=== PATIENT | male | born 1995 | race Caucasian/White ===

== ENCOUNTER → 2021-02-16 11:36 | Outpatient (CLI) | payer OTHER, SELFPAY ==
[2021-02-16 16:21] LABS: Anion Gap 9 (5-15); BUN 12 mg/dL (7-18); BUN/Creat Ratio 14.9 RATIO (10-20); Calcium,Total 9.1 mg/dL (8.5-10.1); Chloride 102 mmol/L (98-107); Cholesterol 173 mg/dL (200); EST Glomerular Filtration Rate 122 mL/min (>60); Est Glom Filt Rate - Afr Amer 148 mL/min (>60); Glucose 76 mg/dL (74-106); High Density Lipoprotein 33 mg/dL; Potassium 3.7 mmol/L (3.5-5.1); Sodium Level 137 mmol/L (136-145); Triglycerides 202 mg/dL; Very Low Density Lipoprotein 40 mg/dL (5-40)
== END ==
PROVIDERS: Visit Provider Family Medicine
DX: Z00.00 Encounter for general adult medical examination without abnormal findings (principal)
CPT/HCPCS: 36415; 80048; 80061

== ENCOUNTER 2021-11-22 08:23 | Day surgery (SDC) | payer OTHER, SELFPAY ==
[2021-11-22] VITALS (11 sets, daily range): BP systolic 107–143; BP diastolic 57–90; PULSE 60–93; RESP 14–18; TEMP 36.1–36.6; O2SAT 92–100; BMI 41.8
[2021-11-22] MEDS: Lactated Ringers 1,000 ML 15 ML IV ×2 (08:55→11:30)
--- NOTE | 2021-11-22 09:39 | HP.PCM_ITS ---
History and Physical Date of Admission: 11/22/21 Intake Vital Signs 10/22/21 08:00 Height 5 ft 8 in Weight: 219 lb 6 oz BMI 33.3 BP 125/85 H Blood Pressure Location Rt brachial Position Sitting Respiration 18 Pulse 70 Pulse Source NIBP Temp 97.8 F Temp Source Temporal Pulse Oximetry (%) 99 Oxygen Delivery Method room air Intake Visit Reasons: Hernia Chief Complaint: umbilical hernia [employer] Att[employer] Required: No Is patient in pain?: No Allergies No Known Allergies Allergy (Verified 10/22/21 08:01) Medications NK 10/22/21 [History Confirmed 10/22/21] [facility] Medical History (Updated 10/22/21 @ 08:00 by Gloria Real) Umbilical hernia Surgical History (Updated 10/22/21 @ 08:00 by Gloria Real) History of right shoulder replacement History of tonsillectomy and adenoidectomy Family History (Updated 10/22/21 @ 08:00 by Gloria Real) Father Cancer retinal Mother No problems noted. Social History Smoking Status: Never smoker HPI HPI HPI: IDAZ ANDREWS, is a 26 M who presents to the office today for ROS General General: Yes weight change; No fatigue HEENT HEENT: No difficulty swallowing Endo Endocrine: No thyroid disease Musc Musculoskeletal: No back problems or arthritis Cardio Cardiovascular: No pacemaker, heart disease, atrial fibrillation, high blood pressure, heart attack, heart stent, palpitations or chest pain Psych Psychiatric: No depression or anxiety Resp Respiratory: No shortness of breath, Yes cough, No COPD, No asthma and No emphysema Gastro Gastrointestinal: No abdominal pain, No nausea or vomiting, No diarrhea, No constipation, No blood in stool, No acid reflux, No hemorrhoids, No ulcers, No gallbladder problem and No black,tarry stools Jarek Hematologic: No blood thinners Exam Const General: cooperative Orientation: alert and oriented x3 HENMT Head: normal to inspection Neck Neck: normal visual inspection and full ROM Chest Chest palpation & inspection: normal inspection of the chest Resp Effort & Inspection: normal respiratory effort Auscultation: clear to auscultation bilaterally Cardio Rate: regular rate Rhythm: regular rhythm GI Inspection: non-distended Palpation: soft, hernia umbilical and nontender Skin General: no rashes or lesions noted Neuro General: patient alert and patient oriented x3 Extrem General: full ROM Psych Appearance: grossly normal Mental Status: mental status grossly normal Assessment and Plan Assessment and Plan (1) Hernia: Plan - Dr. Markus Nam MD: Patient has a moderate sized umbilical hernia. I discussed repair with him both open and laparoscopic approach. Due to his body habitus I would recommend robotic assisted laparoscopic approach so a larger mesh may be placed and reduce the risk of recurrence. I discussed robotic assisted laparoscopic umbilical hernia repair with mesh. I discussed mesh placement I discussed the risks of the procedure including not limited to bleeding, infection, injury to underlying organs and bowel. Patient understands the risks and is when to proceed. Markus Nam MD Pager: [facility] [address] [place] [address], [address] [place] [address] Office: I have re-examined the patient. There are no clinical changes since date of ex am.
[2021-11-22] MEDS: Cefazolin 2 GM in 0.9% Normal Saline 100 ML IV (10:30)
[2021-11-22] MEDS: Bupivacaine 0.5% PF 10 ML VIAL (10:50)
--- NOTE | 2021-11-22 12:19 | OP.PCM_ITS ---
Problems Associated Problem List Diagnoses (1) Umbilical hernia: Report of Operation Date of Procedure: 11/22/21 Pre-Operative Diagnosis: Umbilical hernia Post-Operative Diagnosis: Umbilical hernia Surgery/Procedure Performed:: Robotic assisted laparoscopic umbilical hernia repair with mesh Description of Procedure: Patient was brought back to the operating room and general anesthesia was induced. The abdomen was prepped and draped in usual sterile fashion. An incision was made in the left upper quadrant Veress needle was placed into the abdomen and a drop test was performed. The abdomen was then insufflated 15 mmHg. Veress needle was removed and a camera port was placed into the abdomen the camera was placed into the abdomen. There appeared to be no injuries from entry. Under direct visualization a left lateral 8 mm port was placed as well as a left upper quadrant 8 mm port. The robot was then docked. The hernia contents were reduced. Next an incision was made in the peritoneum of the falciform which was then extended inferiorly to allow a peritoneal flap. The peritoneal flap was then dissected medially until the hernia sac was encountered. The hernia sac was reduced and the preperitoneal plane was continued to dissect laterally until there was a good flap of peritoneum. Next the hernia was closed with running #1 strata fix suture. A 10 x 15 cm progrip mesh was then unfolded over the defect and placed over the defect. Next the peritoneum was reapproximated using running 3 OV lock suture completely covering the mesh with peritoneum. Next the robot was undocked and air was allowed to desufflate from the abdomen and the ports were removed. The incisions were injected with local anesthetic and closed with 4-0 Monocryl suture. Steri- Strips and bandages were applied. Patient was woken and taken to PACU stable condition. Grafts/Implants Used: 10 x 15 cm progrip mesh Admit VTE Documentation VTE Mechan Device Prophylaxis: SCD's
--- NOTE | 2021-11-22 12:22 | EX.PCM.DISCH ---
Discharge Instructions Procedure Hernia Diet Discharge Diet: Light diet - advance as tolerated Activity Discharge Activity: May Not Drive (for 2-3 days or while taking narcotic pain meds.) and May Shower (with the bandage in place 1-2 days after surgery.) Lifting Restrictions: 20 pounds for 4 weeks. Additional Activity Instructions:: Climbing stairs is fine, walking is encouraged. Sitting in bed may be uncomfortable. Sitting up using your lateral muscles (sitting up sideways) is usually more comfortable. Do not drive, work heavy equipment of sign legal documents for 24 hours. Pain medications may cause nausea, you should typically eat light foods as you take your pain medications. Pain medications may also cause constipation. If you have difficulty with this, discuss with your doctor. Tylenol and Ibuprofen for pain, Oxycodone only if this is not working. Dressing / Incision Call your doctor if your incision/area has: Continuous Slow Oozing, Sudden Increased Bleeding, Increased Pain/ Swelling, Increased Redness and Foul Smelling Discharge Call your doctor if you observe: Fever of 101 or Higher Suture Line Care: Avoid Pulling/Pushing and Avoid Pinching/Bending Remove Dressing in: 2 days (Remove clear bandages in 2 days, remove Steri-Strips in 7 to 10 days.) Cleanse incision/area with: Soap & Water Follow Up Care Please Follow Up With: Markus Nma MD When: Please call to schedule 2 week follow up appointment. [phone] Test Results: Test results from this visit will be discussed in further detail at your follow-up appointment, if applicable. Discharge Plan Admission Attending Provider: Markus Nam Primary Care Provider: Aman Sweeney Discharge Orders/Prescriptions Prescriptions: New oxycodone 5 mg tablet 5 - 10 mg PO Q4H PRN (Reason: pain) 5 Days Qty: 20 RF: 0 Referrals / Follow Up: Aman Sweeney MD [Primary Care Provider] - Disposition Disposition (needs filled in before D/C Order can be placed): Home, Self Care
[2021-11-22] MEDS: Acetaminophen 500 MG Tablet 1000 MG PO (13:44)
[2021-11-22] MEDS: oxyCODONE 5 MG Tablet PO (15:38)
== END 2021-11-22 23:59 | disposition home or self-care (01) ==
LOC: SDC 08:25 → AC 08:26
PROVIDERS: PCP Family Medicine; Referring Provider Surgery; Visit Provider Surgery
PROC: (CPT 49585; principal; 2021-11-22 09:45)
DX: K42.9 Umbilical hernia without obstruction or gangrene (principal); R05.3 Chronic cough; Z97.3 Presence of spectacles and contact lenses; Z98.890 Other specified postprocedural states; Z90.89 Acquired absence of other organs
CPT/HCPCS: 49585; S2900; 00830; J7120; J2405